=== PATIENT | female | born 1930 | race African-American/Black ===

== ENCOUNTER 2019-08-24 23:32 | Inpatient (IN) | payer OTHER ==
[~2019-08-24] VITALS: Ht 162.6 cm; Wt 111.6 kg
[~2019-08-24 23:32] MED LIST: AMLO10TA80 PO; LEVO75TA PO; LOV30 SUBCUT; PRAZ5CAP PO
[2019-08-24] MEDS ORDERED: ONDANSETRON HCL 4MG/2ML INJ IV STA (23:47)
[2019-08-25] VITALS (62 sets, daily range): BP systolic 75–171; BP diastolic 32–149
[2019-08-25] MEDS ORDERED: ASPIRIN 81MG TABLET PO ONE
[2019-08-25 00:39] LABS: BASOPHILS % 0.3 % (0.0-2.0); EOSINOPHILS % 0.1 % (0.0-5.0); HEMATOCRIT. 29.7 % (36.0-48.0); HEMOGLOBIN. 9.3 g/dL (12.0-16.0); LYMPHOCYTES % 15.6 % (20.0-50.0); MEAN CORPUSCULAR HEMOGLOBIN 26.7 pg (28.0-32.0); MEAN CORPUSCULAR VOLUME 85.3 fL (81.0-99.0); MEAN PLATELET VOLUME 10.5 fl (7.4-10.4); MONOCYTES % 3.3 % (2.0-8.0); NEUTROPHILS % 80.7 % (40.0-76.0); PLATELET 129 x1000/uL (130-400); RED BLOOD CELL COUNT 3.48 mill/uL (4.2-5.4)
[2019-08-25] MEDS ORDERED: DOPAMINE 400MG/250ML PREMIX 250 ML IV ONE (00:45)
[2019-08-25 01:04] LABS: CHLORIDE 119 mEq/L (98-107)
[2019-08-25 01:14] LABS: T4 FREE 1.33 ng/dL (0.76-1.46)
[2019-08-25] MEDS ORDERED: FUROSEMIDE 40MG/4ML VIAL IVP ONE (01:15)
[2019-08-25] MEDS ORDERED: ATROPINE SULFATE 1MG/10ML SYR IV ONE (01:15)
[2019-08-25] MEDS ORDERED: LORAZEPAM 2MG/ML CPJ ONE (01:51)
[2019-08-25] MEDS ORDERED: MIDAZOLAM HCL 50 MG in DEXTROSE 5% WATER 40 ML IV ONE (02:00)
[2019-08-25] MEDS ORDERED: CALCIUM GLUCONATE 1,000 MG in DEXTROSE 5% WATER 50 ML IV NR (02:00)
[2019-08-25] MEDS ORDERED: FENTANYL CITRATE/PF 500 MCG in SODIUM CHLORIDE 0.9% 40 ML IV PRN ×4 (02:00)
[2019-08-25] MEDS ORDERED: NOREPINEPHRINE 4MG/250ML PMX 250 ML IV ONE (02:00)
[2019-08-25] MEDS ORDERED: SODIUM BICARBONATE 8.4% 1 MEQ/ML 50ML SYR IV NR (02:00)
[2019-08-25] MEDS ORDERED: LORAZEPAM 2MG/ML CPJ IV ONE (02:00)
[2019-08-25] MEDS ORDERED: DEXTROSE 50% WATER 50ML SYRINGE IV NR (02:00)
[2019-08-25] MEDS ORDERED: MIDAZOLAM HCL 50 MG in DEXTROSE 5% WATER 40 ML IV NR (02:00)
[2019-08-25] MEDS ORDERED: INSULIN REGULAR (HUMULIN R) 300UNITS/3ML IV NR (02:00)
[2019-08-25 02:48] LABS: BG BASE EXCESS -6.6 mmol/L (-2.0-2.0); BG CARBOXYHEMOGLOBIN 0.7 % (0.5-1.5); BG FRACTION INSPIRED OXYGEN 100; BG HCO3 ACT 22.1 mmol/L (22.0-26.0); BG METHEMOGLOBIN 0.3 % (0.0-1.5); BG PCO2 62.6 mmHg (35.0-45.0); BG PH 7.166 (7.350-7.450); BG PO2 105.9 mmHg (75.0-100.0); BG SAMPLE SITE RIGHT RADIAL; BG TIDAL VOLUME(mL) 500 mL; BG TOTAL HEMOGLOBIN 9.4 g/dL (12.0-18.0); BG VENT MODE VENT - A/C; BG VENT RATE 14 set
[2019-08-25] MEDS ORDERED: DEXT 5%/0.45% NACL 1000ML 1,000 ML IV SCH (02:57)
[2019-08-25] MEDS ORDERED: DIPHENHYDRAMINE 50MG/ML VIAL IV PRN (03:00)
[2019-08-25] MEDS ORDERED: ACETAMINOPHEN 650MG SUPP PR PRN (03:00)
[2019-08-25] MEDS ORDERED: ONDANSETRON HCL 4MG/2ML INJ IV PRN (03:00)
[2019-08-25] MEDS ORDERED: IPRATROPIUM/ALBUTEROL 0.5-3(2.5)MG/3ML NEB NEB PRN (03:00)
[2019-08-25] MEDS ORDERED: NOREPINEPHRINE 4 MG in DEXT 5% WATER 246 ML IV PRN (03:15)
[2019-08-25] MEDS ORDERED: DOPAMINE 400MG/250ML PREMIX 250 ML IV PRN ×2 (03:15)
[2019-08-25] MEDS ORDERED: CALCIUM GLUCONATE 100MG/ML 10ML VIAL IV NR (03:45)
[2019-08-25] MEDS ORDERED: DEXTROSE 50% WATER 50ML SYRINGE IV PRN (03:45)
[2019-08-25] MEDS ORDERED: DOPAMINE 800MG/500ML PREMIX 500 ML IV PRN (05:00)
[2019-08-25] MEDS ORDERED: NOREPINEPHRINE 4MG/250ML PMX 250 ML IV PRN (05:15)
[2019-08-25] MEDS: DOPAMINE 800MG PREMIX (DOUBLE) 250 ML IV PRN ×3 (05:19→23:11)
[2019-08-25] MEDS ORDERED: MIDAZOLAM HCL 50 MG in DEXTROSE 5% WATER 40 ML IV PRN (06:00)
[2019-08-25] MEDS ORDERED: METHYLPREDNISOLONE SOD SUCC 125 MG/2 ML VIAL IV SCH (06:00)
[2019-08-25] MEDS ORDERED: SODIUM POLYSTYRENE SULFONATE 15 G/60 ML BOT NG NR (06:00)
[2019-08-25] MEDS: DEXT 5%/0.45% NACL 1000ML 1,000 ML IV SCH ×3 (06:06→22:00)
[2019-08-25] MEDS: BLOOD SUGAR DIAGNOSTIC STRIP TEST SCH ×3 (06:07→18:48)
[2019-08-25] MEDS: INSULIN LISPRO 100 UNITS/ML SUBCUT SCH ×3 (06:14→18:27)
[2019-08-25 07:41] LABS: CHLORIDE 115 mEq/L (98-107)
[2019-08-25] MEDS ORDERED: NOREPINEPHRINE 32 MG in DEXT 5% WATER 468 ML IV PRN (08:00)
[2019-08-25] MEDS: IPRATROPIUM/ALBUTEROL 0.5-3(2.5)MG/3ML NEB HHN SCH ×4 (08:26→20:40)
[2019-08-25 08:40] LABS: BG BASE EXCESS -3.4 mmol/L (-2.0-2.0); BG CARBOXYHEMOGLOBIN 0.6 % (0.5-1.5); BG DEOXYHEMOGLOBIN 2.6 % (0.0-5.0); BG FRACTION INSPIRED OXYGEN 100; BG HCO3 ACT 22.4 mmol/L (22.0-26.0); BG METHEMOGLOBIN 0.3 % (0.0-1.5); BG OXYGEN SATURATION 97.4 % (92.0-98.5); BG OXYHEMOGLOBIN 96.5 % (94.0-97.0); BG PCO2 43.8 mmHg (35.0-45.0); BG PH 7.327 (7.350-7.450); BG PO2 107.5 mmHg (75.0-100.0); BG SAMPLE SITE RIGHT RADIAL; BG TIDAL VOLUME(mL) 500 mL; BG TOTAL HEMOGLOBIN 9.6 g/dL (12.0-18.0); BG VENT MODE VENT - A/C; BG VENT RATE 18 set
[2019-08-25] MEDS: FAMOTIDINE 20MG/2ML VIAL IV SCH (09:47)
[2019-08-25 10:14] LABS: HEMATOCRIT. 28.7 % (36.0-48.0); MEAN CORPUSCULAR HEMOGLOBIN 26.4 pg (28.0-32.0); MEAN CORPUSCULAR VOLUME 84.1 fL (81.0-99.0); MEAN PLATELET VOLUME 10.3 fl (7.4-10.4); PLATELET 108 x1000/uL (130-400); RED BLOOD CELL COUNT 3.41 mill/uL (4.2-5.4); RED CELL DISTRIBUTION WIDTH 19.9 % (11.6-14.6)
[2019-08-25] MEDS ORDERED: PIPERACILLIN/TAZOBACTAM 3.375 G in DEXT 5% WATER 100 ML IV SCH (10:30)
[2019-08-25] MEDS ORDERED: INSULIN REGULAR (HUMULIN R) 300UNITS/3ML IV SCH (11:00)
[2019-08-25] MEDS ORDERED: DEXTROSE 50% WATER 50ML SYRINGE IV SCH (11:00)
[2019-08-25 11:54] LABS: NUCLEATED RED BLOOD CELLS 3 /100 WBC; PLATELET ESTIMATE DECREASED
[2019-08-25 12:36] LABS: CLARITY URINE TURBID (CLEAR); COLOR URINE YELLOW (YELLOW); KETONES URINE NEGATIVE (NEGATIVE); LEUKOCYTE ESTERASE URINE 3+ (NEGATIVE); NITRITE URINE NEGATIVE (NEGATIVE); OCCULT BLOOD URINE 3+ (NEGATIVE); PROTEIN URINE 2+ (NEGATIVE); SPECIFIC GRAVITY URINE 1.014 (1.005-1.030)
[2019-08-25 12:54] LABS: *AMPHETAMINES SCREEN URINE NEGATIVE (NEGATIVE); *BARBITURATES SCREEN URINE NEGATIVE (NEGATIVE); *BENZODIAZEPINES SCREEN URINE PRESUMTIVE POSITIVE (NEGATIVE); *COCAINE SCREEN URINE NEGATIVE (NEGATIVE); CANNABINOID URINE SCREEN NEGATIVE (NEGATIVE); PHENCYCLIDINE URINE SCREEN NEGATIVE (NEGATIVE)
[2019-08-25 12:55] LABS: METHADONE URINE SCREEN NEGATIVE (NEGATIVE); OPIATES URINE SCREEN NEGATIVE (NEGATIVE)
[2019-08-25] MEDS ORDERED: CALC-1098 MT (14:32)
[2019-08-25] MEDS ORDERED: CLOP75TA4 MT (14:32)
[2019-08-25] MEDS ORDERED: ALLOPURINAL (14:32)
[2019-08-25] MEDS ORDERED: VERA240T MT (14:32)
[2019-08-25] MEDS ORDERED: ATOR80TA MT (14:32)
[2019-08-25] MEDS ORDERED: LEVE500T9 MT (14:32)
[2019-08-25] MEDS: PIPERACILLIN/TAZOBACTAM 2.25 G in DEXTROSE 5% WATER 50 ML IV SCH ×2 (15:08→22:42)
[2019-08-25] MEDS ORDERED: FUROSEMIDE 100MG/10ML VIAL IVP SCH (18:45)
[2019-08-25] MEDS: LACTULOSE 20G/30ML UDC PO SCH (22:44)
[2019-08-26] VITALS (85 sets, daily range): BP systolic 91–166; BP diastolic 24–117
[2019-08-26] MEDS: IPRATROPIUM/ALBUTEROL 0.5-3(2.5)MG/3ML NEB HHN SCH ×6 (00:25→21:12)
[2019-08-26] MEDS: BLOOD SUGAR DIAGNOSTIC STRIP TEST SCH ×5 (00:37→23:13)
[2019-08-26] MEDS: INSULIN LISPRO 100 UNITS/ML SUBCUT SCH ×5 (01:24→23:13)
[2019-08-26] MEDS: DEXT 5%/0.45% NACL 1000ML 1,000 ML IV SCH ×2 (02:01→15:26)
[2019-08-26] MEDS ORDERED: SODIUM POLYSTYRENE SULFONATE 15 G/60 ML BOT PO PRN ×2 (05:00→09:15)
[2019-08-26] MEDS ORDERED: LACTULOSE 20G/30ML UDC PO PRN ×2 (05:00→09:15)
[2019-08-26] MEDS ORDERED: FUROSEMIDE 100MG/10ML VIAL IVP SCH (06:00)
[2019-08-26] MEDS: LACTULOSE 20G/30ML UDC PO SCH (06:24)
[2019-08-26] MEDS: PIPERACILLIN/TAZOBACTAM 2.25 G in DEXTROSE 5% WATER 50 ML IV SCH ×3 (06:24→21:01)
[2019-08-26] MEDS: FUROSEMIDE 40MG/4ML VIAL IVP SCH ×3 (06:25→21:00)
[2019-08-26] MEDS: DOPAMINE 800MG PREMIX (DOUBLE) 250 ML IV PRN (07:43)
[2019-08-26 07:50] LABS: BG BASE EXCESS -4.6 mmol/L (-2.0-2.0); BG CARBOXYHEMOGLOBIN 0.7 % (0.5-1.5); BG DEOXYHEMOGLOBIN 7.5 % (0.0-5.0); BG HCO3 ACT 21.1 mmol/L (22.0-26.0); BG METHEMOGLOBIN 0.3 % (0.0-1.5); BG OXYGEN SATURATION 92.4 % (92.0-98.5); BG OXYHEMOGLOBIN 91.5 % (94.0-97.0); BG PCO2 41.6 mmHg (35.0-45.0); BG PH 7.324 (7.350-7.450); BG PO2 68.2 mmHg (75.0-100.0); BG SAMPLE SITE RIGHT BRACHIAL; BG TIDAL VOLUME(mL) 500 mL; BG TOTAL HEMOGLOBIN 10.2 g/dL (12.0-18.0); BG VENT MODE VENT - A/C; BG VENT RATE 18 set
[2019-08-26 08:08] LABS: HEMATOCRIT. 29.9 % (36.0-48.0); HEMOGLOBIN. 9.4 g/dL (12.0-16.0); MEAN CORPUSCULAR HEMOGLOBIN 26.6 pg (28.0-32.0); MEAN CORPUSCULAR VOLUME 84.8 fL (81.0-99.0); MEAN PLATELET VOLUME 9.4 fl (7.4-10.4); PLATELET 130 x1000/uL (130-400); RED BLOOD CELL COUNT 3.52 mill/uL (4.2-5.4); RED CELL DISTRIBUTION WIDTH 19.8 % (11.6-14.6)
[2019-08-26] MEDS: FAMOTIDINE 20MG/2ML VIAL IV SCH (08:34)
[2019-08-26 08:38] LABS: CHLORIDE 111 mEq/L (98-107)
[2019-08-26 08:47] LABS: LDL CHOLESTEROL 23 mg/dL (5-100)
[2019-08-26 08:48] LABS: CREATINE KINASE 334 IU/L (26-192); CREATINE KINASE MB FRACTION 8.4 ng/mL (0.5-3.6); HDL CHOLESTEROL 62 mg/dL (40-59)
[2019-08-26] MEDS: FENTANYL CITRATE/PF 500 MCG in SODIUM CHLORIDE 0.9% 40 ML IV PRN ×3 (09:48→19:47)
[2019-08-26 11:13] LABS: NUCLEATED RED BLOOD CELLS 1 /100 WBC; PLATELET ESTIMATE NORMAL
[2019-08-26] MEDS: ENOXAPARIN 40MG/0.4ML SYR SUBCUT SCH (11:40)
[2019-08-26] MEDS: PROPOFOL 10MG/ML 100ML 100 ML IV PRN ×3 (15:06→22:43)
[2019-08-27] VITALS (91 sets, daily range): BP systolic 88–158; BP diastolic 29–76
[2019-08-27] MEDS: IPRATROPIUM/ALBUTEROL 0.5-3(2.5)MG/3ML NEB HHN SCH ×7 (01:00→23:48)
[2019-08-27] MEDS: DEXT 5%/0.45% NACL 1000ML 1,000 ML IV SCH ×2 (04:14→21:57)
[2019-08-27] MEDS: PROPOFOL 10MG/ML 100ML 100 ML IV PRN ×4 (04:44→20:45)
[2019-08-27] MEDS: FUROSEMIDE 40MG/4ML VIAL IVP SCH ×2 (05:13→13:48)
[2019-08-27] MEDS: BLOOD SUGAR DIAGNOSTIC STRIP TEST SCH ×4 (05:13→23:45)
[2019-08-27] MEDS: INSULIN LISPRO 100 UNITS/ML SUBCUT SCH ×4 (05:14→23:46)
[2019-08-27] MEDS: PIPERACILLIN/TAZOBACTAM 2.25 G in DEXTROSE 5% WATER 50 ML IV SCH ×3 (05:14→21:56)
[2019-08-27 07:39] LABS: CHLORIDE 113 mEq/L (98-107)
[2019-08-27] MEDS: FAMOTIDINE 20MG/2ML VIAL IV SCH (08:47)
[2019-08-27] MEDS: ENOXAPARIN 40MG/0.4ML SYR SUBCUT SCH (08:47)
[2019-08-27 09:40] LABS: INR 1.2; PROTHROMBIN TIME 12.2 sec (9.6-11.0)
[2019-08-27 09:43] LABS: HEMOGLOBIN 8.7 g/dL (12.0-16.0); MEAN CORPUSCULAR HEMOGLOBIN 26.9 pg (28.0-32.0); MEAN CORPUSCULAR VOLUME 83.8 fL (81.0-99.0); PLATELET 112 x1000/uL (130-400); RED BLOOD CELL COUNT 3.22 mill/uL (4.2-5.4); RED CELL DISTRIBUTION WIDTH 19.2 % (11.6-14.6)
[2019-08-27] MEDS ORDERED: POTASSIUM CHLORIDE 20MEQ/PACKET PO SCH (11:00)
[2019-08-27] MEDS: FENTANYL CITRATE/PF 500 MCG in SODIUM CHLORIDE 0.9% 40 ML IV PRN (12:15)
[2019-08-27 12:16] LABS: BG BASE EXCESS -1.4 mmol/L (-2.0-2.0); BG CARBOXYHEMOGLOBIN 0.3 % (0.5-1.5); BG DEOXYHEMOGLOBIN 2.6 % (0.0-5.0); BG FRACTION INSPIRED OXYGEN 70; BG HCO3 ACT 21.7 mmol/L (22.0-26.0); BG METHEMOGLOBIN 0.3 % (0.0-1.5); BG OXYGEN SATURATION 97.4 % (92.0-98.5); BG OXYHEMOGLOBIN 96.8 % (94.0-97.0); BG PCO2 30.7 mmHg (35.0-45.0); BG PH 7.467 (7.350-7.450); BG PO2 108.3 mmHg (75.0-100.0); BG SAMPLE SITE RIGHT RADIAL; BG TIDAL VOLUME(mL) 500 mL; BG TOTAL HEMOGLOBIN 9.7 g/dL (12.0-18.0); BG VENT MODE VENT - A/C; BG VENT RATE 22 set
[2019-08-27] MEDS ORDERED: SODIUM BICARBONATE 4% (2.4MEQ) 5ML VIAL IV ONE (13:13)
[2019-08-27] MEDS ORDERED: FUROSEMIDE 40MG/4ML VIAL IVP SCH (22:00)
[2019-08-28] VITALS (53 sets, daily range): BP systolic 115–164; BP diastolic 48–136
[2019-08-28] MEDS: IPRATROPIUM/ALBUTEROL 0.5-3(2.5)MG/3ML NEB HHN SCH ×4 (03:10→20:20)
[2019-08-28] MEDS: INSULIN LISPRO 100 UNITS/ML SUBCUT SCH ×3 (06:05→17:33)
[2019-08-28] MEDS: PIPERACILLIN/TAZOBACTAM 2.25 G in DEXTROSE 5% WATER 50 ML IV SCH ×3 (06:05→22:30)
[2019-08-28] MEDS: BLOOD SUGAR DIAGNOSTIC STRIP TEST SCH ×3 (06:05→17:17)
[2019-08-28 06:20] LABS: BASOPHILS % 0.3 % (0.0-2.0); EOSINOPHILS % 0.7 % (0.0-5.0); HEMATOCRIT. 25.8 % (36.0-48.0); HEMOGLOBIN. 8.4 g/dL (12.0-16.0); LYMPHOCYTES % 14.1 % (20.0-50.0); MEAN CORPUSCULAR HEMOGLOBIN 27.1 pg (28.0-32.0); MONOCYTES % 5.1 % (2.0-8.0); NEUTROPHILS % 79.8 % (40.0-76.0); PLATELET 104 x1000/uL (130-400); RED BLOOD CELL COUNT 3.11 mill/uL (4.2-5.4); RED CELL DISTRIBUTION WIDTH 19.4 % (11.6-14.6)
[2019-08-28 06:35] LABS: PHOSPHORUS 3.5 mg/dL (2.5-4.9)
[2019-08-28] MEDS: PROPOFOL 10MG/ML 100ML 100 ML IV PRN ×4 (07:34→19:13)
[2019-08-28 07:55] LABS: BG BASE EXCESS -0.3 mmol/L (-2.0-2.0); BG CARBOXYHEMOGLOBIN 0.6 % (0.5-1.5); BG DEOXYHEMOGLOBIN 6.4 % (0.0-5.0); BG HCO3 ACT 23.9 mmol/L (22.0-26.0); BG METHEMOGLOBIN 0.3 % (0.0-1.5); BG OXYGEN SATURATION 93.5 % (92.0-98.5); BG OXYHEMOGLOBIN 92.7 % (94.0-97.0); BG PCO2 37.1 mmHg (35.0-45.0); BG PH 7.427 (7.350-7.450); BG PO2 72.5 mmHg (75.0-100.0); BG SAMPLE SITE RIGHT RADIAL; BG TIDAL VOLUME(mL) 500 mL; BG TOTAL HEMOGLOBIN 8.2 g/dL (12.0-18.0); BG VENT MODE VENT - A/C; BG VENT RATE 22 set
[2019-08-28] MEDS: FOLIC ACID/VITAMIN B COMP W-C TABLET PO SCH (08:46)
[2019-08-28] MEDS: ENOXAPARIN 40MG/0.4ML SYR SUBCUT SCH (08:47)
[2019-08-28] MEDS: FAMOTIDINE 20MG/2ML VIAL IV SCH (08:47)
[2019-08-28] MEDS ORDERED: POTASSIUM CHLORIDE 20MEQ/PACKET PO NR (10:00)
[2019-08-28] MEDS ORDERED: MAGNESIUM 2 G PREMIX 50 ML IV NR (11:00)
[2019-08-28] MEDS: DEXT 5%/0.45% NACL 1000ML 1,000 ML IV SCH (12:59)
[2019-08-28] MEDS: FENTANYL CITRATE/PF 500 MCG in SODIUM CHLORIDE 0.9% 40 ML IV PRN (14:48)
[2019-08-28] MEDS: FUROSEMIDE 20MG TABLET PO SCH (20:19)
[2019-08-29] VITALS (39 sets, daily range): BP systolic 118–183; BP diastolic 50–119
[2019-08-29] MEDS: BLOOD SUGAR DIAGNOSTIC STRIP TEST SCH ×4 (00:23→17:22)
[2019-08-29] MEDS: INSULIN LISPRO 100 UNITS/ML SUBCUT SCH ×4 (00:27→17:29)
[2019-08-29] MEDS: DEXT 5%/0.45% NACL 1000ML 1,000 ML IV SCH (00:28)
[2019-08-29] MEDS: IPRATROPIUM/ALBUTEROL 0.5-3(2.5)MG/3ML NEB HHN SCH ×6 (00:45→20:45)
[2019-08-29] MEDS: PROPOFOL 10MG/ML 100ML 100 ML IV PRN ×4 (03:55→19:11)
[2019-08-29 05:50] LABS: BASOPHILS % 0.1 % (0.0-2.0); EOSINOPHILS % 1.6 % (0.0-5.0); HEMATOCRIT. 27.6 % (36.0-48.0); HEMOGLOBIN. 8.8 g/dL (12.0-16.0); LYMPHOCYTES % 20.4 % (20.0-50.0); MEAN CORPUSCULAR HEMOGLOBIN 26.4 pg (28.0-32.0); MEAN PLATELET VOLUME 9.6 fl (7.4-10.4); MONOCYTES % 7.8 % (2.0-8.0); NEUTROPHILS % 70.1 % (40.0-76.0); PLATELET 97 x1000/uL (130-400); RED BLOOD CELL COUNT 3.32 mill/uL (4.2-5.4); RED CELL DISTRIBUTION WIDTH 19.4 % (11.6-14.6)
[2019-08-29 05:57] LABS: PHOSPHORUS 4.3 mg/dL (2.5-4.9)
[2019-08-29] MEDS: PIPERACILLIN/TAZOBACTAM 2.25 G in DEXTROSE 5% WATER 50 ML IV SCH ×3 (06:27→21:46)
[2019-08-29] MEDS: ENOXAPARIN 40MG/0.4ML SYR SUBCUT SCH (08:21)
[2019-08-29] MEDS: FAMOTIDINE 20MG/2ML VIAL IV SCH (08:28)
[2019-08-29] MEDS: FOLIC ACID/VITAMIN B COMP W-C TABLET PO SCH (08:29)
[2019-08-29] MEDS ORDERED: POTASSIUM CHLORIDE 20MEQ/PACKET PO SCH ×2 (09:00→10:00)
[2019-08-29] MEDS: FUROSEMIDE 20MG TABLET PO SCH ×2 (09:49→21:46)
[2019-08-29] MEDS ORDERED: FUROSEMIDE 40MG/4ML VIAL IVP SCH (14:00)
[2019-08-29] MEDS: AMLODIPINE 5MG TABLET PO SCH ×2 (16:43→21:46)
[2019-08-29] MEDS ORDERED: POTASSIUM CHLORIDE 20MEQ/PACKET PO NR (16:48)
[2019-08-29] MEDS: SODIUM CHLORIDE 0.45% 1,000 ML IV SCH (21:55)
[2019-08-30] VITALS (48 sets, daily range): BP systolic 117–165; BP diastolic 36–77
[2019-08-30] MEDS: IPRATROPIUM/ALBUTEROL 0.5-3(2.5)MG/3ML NEB HHN SCH ×6 (00:13→20:51)
[2019-08-30] MEDS: INSULIN LISPRO 100 UNITS/ML SUBCUT SCH ×6 (00:35→23:49)
[2019-08-30] MEDS: BLOOD SUGAR DIAGNOSTIC STRIP TEST SCH ×5 (00:35→23:35)
[2019-08-30] MEDS: PROPOFOL 10MG/ML 100ML 100 ML IV PRN ×3 (00:41→13:33)
[2019-08-30] MEDS: PIPERACILLIN/TAZOBACTAM 2.25 G in DEXTROSE 5% WATER 50 ML IV SCH ×3 (06:07→21:24)
[2019-08-30 06:34] LABS: HEMATOCRIT. 25.3 % (36.0-48.0); HEMOGLOBIN. 8.3 g/dL (12.0-16.0); MEAN CORPUSCULAR HEMOGLOBIN 27.2 pg (28.0-32.0); MEAN CORPUSCULAR VOLUME 82.8 fL (81.0-99.0); RED BLOOD CELL COUNT 3.06 mill/uL (4.2-5.4)
[2019-08-30 07:28] LABS: PLATELET ESTIMATE DECREASED
[2019-08-30 07:29] LABS: MEAN PLATELET VOLUME 9.6 fl (7.4-10.4); PLATELET 102 x1000/uL (130-400)
[2019-08-30] MEDS: FAMOTIDINE 20MG/2ML VIAL IV SCH (09:31)
[2019-08-30] MEDS: ENOXAPARIN 40MG/0.4ML SYR SUBCUT SCH (09:31)
[2019-08-30] MEDS: AMLODIPINE 5MG TABLET PO SCH ×2 (09:31→21:24)
[2019-08-30] MEDS: FOLIC ACID/VITAMIN B COMP W-C TABLET PO SCH (09:31)
[2019-08-30] MEDS ORDERED: POTASSIUM CHLORIDE 20MEQ/PACKET NG NR (09:45)
[2019-08-30] MEDS: FUROSEMIDE 20MG TABLET PO SCH ×2 (09:46→21:23)
[2019-08-30 09:49] LABS: BG BASE EXCESS -0.5 mmol/L (-2.0-2.0); BG CARBOXYHEMOGLOBIN 0.3 % (0.5-1.5); BG DEOXYHEMOGLOBIN 5.5 % (0.0-5.0); BG FRACTION INSPIRED OXYGEN 70; BG HCO3 ACT 23.9 mmol/L (22.0-26.0); BG METHEMOGLOBIN 0.3 % (0.0-1.5); BG OXYGEN SATURATION 94.5 % (92.0-98.5); BG OXYHEMOGLOBIN 93.9 % (94.0-97.0); BG PCO2 38.2 mmHg (35.0-45.0); BG PH 7.414 (7.350-7.450); BG PO2 77.9 mmHg (75.0-100.0); BG SAMPLE SITE RIGHT RADIAL; BG TIDAL VOLUME(mL) 500 mL; BG TOTAL HEMOGLOBIN 8.8 g/dL (12.0-18.0); BG VENT MODE VENT - A/C; BG VENT RATE 22 set
[2019-08-30] MEDS ORDERED: PROPOFOL 10MG/ML 100ML 100 ML IV PRN (10:45)
[2019-08-30] MEDS: ACETYLCYSTEINE 100MG/ML 10% VIAL 4ML INH SCH (11:57)
[2019-08-30 14:38] LABS: BG BASE EXCESS -3.8 mmol/L (-2.0-2.0); BG CARBOXYHEMOGLOBIN 0.3 % (0.5-1.5); BG DEOXYHEMOGLOBIN 3.6 % (0.0-5.0); BG FRACTION INSPIRED OXYGEN 60; BG HCO3 ACT 21.5 mmol/L (22.0-26.0); BG METHEMOGLOBIN 0.3 % (0.0-1.5); BG OXYGEN SATURATION 96.4 % (92.0-98.5); BG OXYHEMOGLOBIN 95.8 % (94.0-97.0); BG PCO2 39.9 mmHg (35.0-45.0); BG PO2 99.9 mmHg (75.0-100.0); BG SAMPLE SITE RIGHT RADIAL; BG TIDAL VOLUME(mL) 550 mL; BG TOTAL HEMOGLOBIN 8.5 g/dL (12.0-18.0); BG VENT MODE VENT - A/C; BG VENT RATE 20 set
[2019-08-30] MEDS: SODIUM CHLORIDE 0.45% 1,000 ML IV SCH (21:24)
[2019-08-31] VITALS (31 sets, daily range): BP systolic 107–165; BP diastolic 41–81
[2019-08-31] MEDS: IPRATROPIUM/ALBUTEROL 0.5-3(2.5)MG/3ML NEB HHN SCH ×6 (00:39→20:25)
[2019-08-31] MEDS: ACETYLCYSTEINE 100MG/ML 10% VIAL 4ML INH SCH ×3 (00:39→16:15)
[2019-08-31] MEDS: PROPOFOL 10MG/ML 100ML 100 ML IV PRN ×3 (01:55→16:54)
[2019-08-31] MEDS: BLOOD SUGAR DIAGNOSTIC STRIP TEST SCH ×3 (06:34→17:23)
[2019-08-31] MEDS: PIPERACILLIN/TAZOBACTAM 2.25 G in DEXTROSE 5% WATER 50 ML IV SCH ×3 (06:34→22:27)
[2019-08-31] MEDS: INSULIN LISPRO 100 UNITS/ML SUBCUT SCH ×4 (06:47→22:27)
[2019-08-31 08:06] LABS: BG BASE EXCESS -3.9 mmol/L (-2.0-2.0); BG CARBOXYHEMOGLOBIN 0.5 % (0.5-1.5); BG FRACTION INSPIRED OXYGEN 50; BG HCO3 ACT 20.4 mmol/L (22.0-26.0); BG METHEMOGLOBIN 0.3 % (0.0-1.5); BG OXYHEMOGLOBIN 93.2 % (94.0-97.0); BG PCO2 33.4 mmHg (35.0-45.0); BG PH 7.403 (7.350-7.450); BG PO2 72.9 mmHg (75.0-100.0); BG SAMPLE SITE RIGHT RADIAL; BG TIDAL VOLUME(mL) 550 mL; BG VENT MODE VENT - A/C; BG VENT RATE 20 set
[2019-08-31] MEDS ORDERED: LIDOCAINE HCL 1% 20ML VIAL (Pyxis) INJ ONE (08:19)
[2019-08-31] MEDS: AMLODIPINE 5MG TABLET PO SCH ×2 (10:29→20:58)
[2019-08-31] MEDS: FAMOTIDINE 20MG/2ML VIAL IV SCH (10:29)
[2019-08-31] MEDS: FUROSEMIDE 20MG TABLET PO SCH ×2 (10:30→20:58)
[2019-08-31] MEDS: FOLIC ACID/VITAMIN B COMP W-C TABLET PO SCH (10:30)
[2019-08-31] MEDS ORDERED: POTASSIUM CHLORIDE 20MEQ/PACKET PO NR (11:36)
[2019-08-31] MEDS ORDERED: NOREPINEPHRINE 32 MG in DEXT 5% WATER 468 ML IV PRN (14:45)
[2019-08-31] MEDS: HYDRALAZINE HCL 25MG TABLET PO SCH ×2 (17:22→21:30)
[2019-08-31] MEDS ORDERED: PROPOFOL 10MG/ML 100ML 100 ML IV PRN (19:45)
[2019-08-31] MEDS: SODIUM CHLORIDE 0.45% 1,000 ML IV SCH (21:28)
== END 2019-08-31 23:20 | disposition short-term general hospital (02) | DRG 870 ==
LOC: ER 23:32 → EDBEDREQSVC 08-25 01:58 → EDBEDREQ 08-25 01:58 → EDBEDREQTM 08-25 01:58 → ENRESERV 08-25 02:32 → CVICU 08-25 04:46
PROVIDERS: ADMIT Internal Medicine; ATTEND Internal Medicine
PROC: 5A1955Z Respiratory Ventilation, Greater than 96 Consecutive Hours (ICD-10-PCS; principal; 2019-08-25)
PROC: 0BH17EZ Insertion of Endotracheal Airway into Trachea, Via Natural or Artificial Opening (ICD-10-PCS; 2019-08-25)
PROC: 06HY33Z Insertion of Infusion Device into Lower Vein, Percutaneous Approach (ICD-10-PCS; 2019-08-25)
PROC: 5A09357 Assistance with Respiratory Ventilation, Less than 24 Consecutive Hours, Continuous Positive Airway Pressure (ICD-10-PCS; 2019-08-25)
PROC: 05H933Z Insertion of Infusion Device into Right Brachial Vein, Percutaneous Approach (ICD-10-PCS; 2019-08-31)
PROC: B54MZZA Ultrasonography of Right Upper Extremity Veins, Guidance (ICD-10-PCS; 2019-08-31)
DX: A41.51 Sepsis due to Escherichia coli [E. coli] (principal); J96.01 Acute respiratory failure with hypoxia; N17.0 Acute kidney failure with tubular necrosis; G93.41 Metabolic encephalopathy; J96.02 Acute respiratory failure with hypercapnia; I13.0 Hypertensive heart and chronic kidney disease with heart failure and stage 1 through stage 4 chronic kidney disease, or unspecified chronic kidney disease; R17 Unspecified jaundice; E44.1 Mild protein-calorie malnutrition; E87.1 Hypo-osmolality and hyponatremia; N39.0 Urinary tract infection, site not specified; E87.0 Hyperosmolality and hypernatremia; E87.2 Acidosis; I31.3 Pericardial effusion (noninflammatory); Z99.11 Dependence on respirator [ventilator] status; Z68.41 Body mass index [BMI] 40.0-44.9, adult; I50.40 Unspecified combined systolic (congestive) and diastolic (congestive) heart failure; E11.22 Type 2 diabetes mellitus with diabetic chronic kidney disease; N18.9 Chronic kidney disease, unspecified; E87.5 Hyperkalemia; R74.0 Nonspecific elevation of levels of transaminase and lactic acid dehydrogenase [LDH]; D64.9 Anemia, unspecified; D69.6 Thrombocytopenia, unspecified; E03.9 Hypothyroidism, unspecified; E86.0 Dehydration; E87.6 Hypokalemia; M10.9 Gout, unspecified; E11.21 Type 2 diabetes mellitus with diabetic nephropathy; I48.91 Unspecified atrial fibrillation; E83.42 Hypomagnesemia; B96.20 Unspecified Escherichia coli [E. coli] as the cause of diseases classified elsewhere; Z86.73 Personal history of transient ischemic attack (TIA), and cerebral infarction without residual deficits; Z79.899 Other long term (current) drug therapy; Z87.891 Personal history of nicotine dependence
CPT/HCPCS: 36415; 36600; 70551; 71045; 71250; 76604; 76705; 76770; 76937; 80048; 80053; 80061; 80305; 81003; 82140; 82375; 82550; 82553; 82805; 82962; 83036; 83735; 83880; 84100; 84132; 84134; 84300; 84439; 84443; 84478; 84484; 85025; 85027; 85379; 87077; 87186; 93005; 93306; 93970; 94002; 94003; 94640; 94660; 96365; 96368; 96375; 99291; A6261; C1725; J0610; J1265; J1650; J1815; J1940; J2060; J2250; J2405; J2543; J2704; J2930; J3010; J3475; J3490; J7040; J7060; J7608